=== PATIENT | female | born 1950 | race Caucasian/White ===

== ENCOUNTER → 2023-10-02 09:47 | Outpatient (REF) | payer OTHER, SELFPAY | LOC: HWRAD 09:47 | PROVIDERS: ATTENDING PHYSICIAN Nurse Practitioner Primary Care | DX: M85.89 Other specified disorders of bone density and structure, multiple sites (principal) | CPT/HCPCS: 77080 ==

== ENCOUNTER → 2024-01-18 08:57 | Outpatient (REF) | payer OTHER, SELFPAY | LOC: HWRAD 08:57 | PROVIDERS: ATTENDING PHYSICIAN Nurse Practitioner Primary Care; REFERRING PHYSICIAN Internal Medicine | DX: K21.9 Gastro-esophageal reflux disease without esophagitis (principal); K44.9 Diaphragmatic hernia without obstruction or gangrene; R10.13 Epigastric pain; R31.29 Other microscopic hematuria | CPT/HCPCS: 74177; Q9967 ==

== ENCOUNTER → 2024-02-18 11:37 | Outpatient (REF) | payer OTHER, SELFPAY | LOC: HWRAD 11:37 | PROVIDERS: ATTENDING PHYSICIAN Internal Medicine; FAMILY PHYSICIAN Nurse Practitioner Primary Care | DX: J47.9 Bronchiectasis, uncomplicated (principal) | CPT/HCPCS: 71046 ==

== ENCOUNTER → 2024-11-10 13:33 | Outpatient (REF) | payer OTHER, SELFPAY | LOC: RCS 13:33 | PROVIDERS: ATTENDING PHYSICIAN Nurse Practitioner Primary Care | DX: I49.1 Atrial premature depolarization (principal) | CPT/HCPCS: 93225; 93226 ==

== ENCOUNTER → 2024-11-17 13:25 | Outpatient (REF) | payer OTHER, SELFPAY | LOC: RAD 13:25 | PROVIDERS: ATTENDING PHYSICIAN Nurse Practitioner Primary Care | DX: J34.2 Deviated nasal septum (principal); I47.9 Paroxysmal tachycardia, unspecified; Z86.711 Personal history of pulmonary embolism | CPT/HCPCS: 70486; 71260; Q9967 ==

== ENCOUNTER → 2024-12-03 13:32 | Outpatient (REF) | payer OTHER, SELFPAY | LOC: RCS 13:32 | PROVIDERS: ATTENDING PHYSICIAN Nurse Practitioner Primary Care | DX: I49.1 Atrial premature depolarization (principal) | CPT/HCPCS: 93306 ==

== ENCOUNTER → 2025-04-29 11:19 | Outpatient (REF) | payer OTHER, SELFPAY | LOC: HWRAD 11:19 | PROVIDERS: ATTENDING PHYSICIAN Nurse Practitioner Primary Care; REFERRING PHYSICIAN Internal Medicine | DX: R59.1 Generalized enlarged lymph nodes (principal); J47.9 Bronchiectasis, uncomplicated | CPT/HCPCS: 71046; 76536 ==